=== PATIENT | female | born 1960 | race Caucasian/White ===

== ENCOUNTER 2022-01-05 08:05 | Outpatient (CLI) | payer BC, SELFPAY ==
[2022-01-05 10:16] LABS: Albumin* 4.7 g/dL (3.3-5.0); Chloride* 101 mmol/L (96-114)
[2022-01-05 10:17] LABS: Potassium* 4.3 mmol/L (3.6-5.1); Sodium* 139 mmol/L (135-149)
[2022-01-05 10:19] LABS: Aspartate Amino Transferase* 23 U/L (12-35); Bilirubin Total* 0.4 mg/dL (0.1-1.5); Blood Urea Nitrogen* 23 mg/dL (7-30); Carbon Dioxide* 28 mmol/L (20-32); Cholesterol* 194 mg/dL (90-199); Estimated Glomerular Filt Rate 64 ml/min; Total Protein* 7.6 g/dL (6.0-8.3)
[2022-01-05 10:20] LABS: Alanine Aminotransferase* 25 U/L (4-35); Alkaline Phosphatase* 101 U/L (40-150); Calcium* 9.7 mg/dL (8.4-10.6); Glucose* 110 mg/dL (60-115); HDL Cholesterol* 51 mg/dL (>=50); LDL Cholesterol Calculated 119 mg/dL (<100); Triglycerides* 122 mg/dL (40-149)
== END 2022-01-05 08:06 | disposition home or self-care (01) ==
PROVIDERS: PCP Family Medicine; Visit Provider Family Medicine
DX: E78.5 Hyperlipidemia, unspecified (principal)
CPT/HCPCS: 80053; 80061

== ENCOUNTER 2022-01-20 08:43 | Outpatient (CLI) | payer BC, SELFPAY | END 2022-01-20 08:44 | disposition home or self-care (01) | PROVIDERS: PCP Family Medicine; Visit Provider Surgery | DX: Z12.11 Encounter for screening for malignant neoplasm of colon (principal) | CPT/HCPCS: 45378; 99153; J2250; J3010 ==

== ENCOUNTER 2022-01-24 11:05 | Emergency (ER) | payer BC, SELFPAY ==
[2022-01-24] VITALS (16 sets, daily range): BP systolic 116–145; BP diastolic 65–88; PULSE 59–69; TEMP 36.8; O2SAT 98–100; BMI 28.3
--- NOTE | 2022-01-24 11:17 | ED_ITS ---
HPI - General Adult General Time Seen by Provider: 11:17 Date Seen: 01/24/22 Chief complaint: Abdominal Pain Stated complaint: Nausea abnormal bowel movement Time Seen by Provider: 01/24/22 11:07 Source: patient and RN notes reviewed Mode of arrival: ambulatory Limitations: no limitations History of Present Illness HPI narrative: Patient is a 61-year-old female coming in with severe nausea starting today as well as change in stool color. Patient had a colonoscopy this past Wednesday, states there were no biopsies done, no polyps found. She has had no bloody stoo ls, no significant abdominal pain after the colonoscopy. Yesterday she did receive her 5th COVID vaccine as well as her influenza vaccine. Besides her arm feeling sore, she had had no other symptoms. Today she awoke feeling nauseated. She did have some coffee and toast this morning and feels that made her worse. She has not vomited in but does carry a bucket with her coming in. There has been no fevers or chills. No urinary symptoms. She had a bowel movement that was formed but had white stool mixed in, looked like whipped cream color to her. She has never had any abdominal surgeries, still does have her gallbladder. Is not having any abdominal pain, just feeling quite nauseated. Colonoscopy was performed here. Related Data Previous Rx's Medication Instructions Recorded atorvastatin 10 mg tablet 10 mg PO QDAY #90 tabs 01/05/22 fluoxetine 20 mg capsule 20 mg PO QDAY #90 caps 01/05/22 peg 3350-electrolytes 236 240 ml PO Q10M #4,000 mL 01/05/22 gram-22.74 gram-6.74 gram-5.86 gram solution (Golytely) fluoxetine 10 mg capsule 30 mg PO QDAY #90 caps 01/18/22 Allergies Allergy/AdvReac Type Severity Reaction Status Date / Time iodine Allergy Mild Hives Verified 01/24/22 11:40 Review of Systems Status of ROS: Reports: 10 or more systems reviewed and unremarkable except as noted in History and below [facility] Medical History (Updated 01/24/22 @ 13:19 by Joselin Mcguire MD) Bladder cancer Social History Smoking Status: Never smoker Do you use any of these nicotine containing products: None Second hand tobacco smoke exposure: No How often do you have a drink containing alcohol: never How often do you have six or more drinks on one occasion: Never AUDIT-C Alcohol total score: 0 Non-prescribed substance use: denies use Little interest or pleasure in doing things: more than half the days Feeling down, depressed, or hopeless: more than half the days Exam Const: Vital Signs, click to edit/add: Vital Signs - 24 hr 01/24/22 11:12 01/24/22 11:20 01/24/22 11:22 Temperature 98.2 F Pulse Rate 65 66 Pulse Rate [Left P ulse Oximeter] 69 Blood Pressure 142/88 H Blood Pressure [Ri ght Upper Arm] 133/75 Pulse Oximetry 99 100 100 Oxygen Delivery Me thod Room Air 01/24/22 11:32 01/24/22 11:23 01/24/22 11:30 Temperature Pulse Rate 65 69 Pulse Rate [Left P ulse Oximeter] Blood Pressure Blood Pressure [Ri ght Upper Arm] Pulse Oximetry 99 100 100 Oxygen Delivery Me thod 01/24/22 11:32 01/24/22 12:08 01/24/22 12:10 Temperature Pulse Rate 64 60 59 L Pulse Rate [Left P ulse Oximeter] Blood Pressure 140/82 H 116/65 Blood Pressure [Ri ght Upper Arm] Pulse Oximetry 100 100 100 Oxygen Delivery Me thod 01/24/22 12:11 01/24/22 12:50 01/24/22 12:52 Temperature Pulse Rate 64 67 Pulse Rate [Left P ulse Oximeter] Blood Pressure 145/85 H Blood Pressure [Ri ght Upper Arm] Pulse Oximetry 100 98 100 Oxygen Delivery Me thod Documenting provider has reviewed patient's vital signs: yes Common normals: no apparent distress, average body habitus, oriented x3, no limitations, healthy appearing and alert General appearance: cooperative, comfortable and well kempt HENMT: Common normals: normocephalic, head/scalp atraumatic, hearing grossly normal bilaterally, external ears normal, external nose normal, nasal mucous membranes and turbinates normal, moist oral mucous membranes, oropharynx normal, dentition normal and gingiva normal Head and scalp: normocephalic and atraumatic Nose: external nose normal and nasal mucous membranes and turbinates normal External ear: external ears normal Eye: Common normals: PERRL, EOMs intact bilaterally, conjunctivae normal and no scleral icterus Conjunctiva: conjunctiva(e) normal Pupil: PERRL Neck & C-Spine: Common normals: full ROM, no lymphadenopathy, supple, no meningeal signs, no JVD and thyroid normal Thyroid: thyroid normal Resp: Common normals: normal respiratory effort, no retractions, no use of accessory muscles and clear to auscultation bilaterally Effort & inspection: able to speak in complete sentences Auscultation: clear to auscultation bilaterally Cardio: Common normals: no JVD, regular rate, regular rhythm, S1 normal heart sound, S2 normal heart sound, no gallops, no clicks, no murmurs and no rub Rate: regular rate Rhythm: regular rhythm Heart sounds: S1 normal and S2 normal GI: Common normals: Normal to inspection, nondistended, normoactive bowel sounds present, soft to palpation, non-tender, no hepatosplenomegaly, no masses and no bruits Palpation: soft and no hepatosplenomegaly Extremity: Common normals: normal to inspection, full ROM, normal capillary refill, no joint enlargement, no clubbing, cyanosis or edema, no calf tenderness and no pedal edema Neuro: Common normals: oriented x3, CN's II-XII intact bilaterally, moves all extremities, no focal motor deficits, no sensory deficits noted and gait normal Sensorium/orientation: alert Meningeal signs: no meningeal signs Psych: Appearance: well kempt Course Course Hospital Course: Patient's history is a bit complicated with a recent colonoscopy and getting immunized for COVID as well as influenza yesterday. With the change in stool color, reviewed with her and her that that could be suggestive of gallbladder disease. She has had no diarrhea but is having formed stools with 1 today with whitish color. With the nausea, I do think we need to consider gallbladder disease. I am doubtful that this is a perforation or complication of her colonoscopy but will simply do a flat and upright to ensure no acute pathology there. We will attempt to treat her nausea with a L of IV fluids and as well as 4 mg IV Zofran. We will get appropriate labs. Will look at her gallbladder with a limited ultrasound. Reevaluation(s) Reevaluation #1: Patient is feeling much better, the Zofran has worked wonderfully. Reviewed her normal labs with her, including lipase and C reactive protein. Did review with her that we even checked a troponin which was normal. Her abdominal x-ray is showing potential stool buildup despite recent colonoscopy. There are no obstructive changes, no perforation. Her gallbladder ultrasound is not suggestive of any acute pathology, there is some sludge but nothing obstructive in certainly no changes of cholecystitis. Did review with her that there might be a pancreatic cyst and given normal labs, nonacute abdomen today, do feel that outpatient further workup with a dedicated pancreatic CT or MRI as noted by radiology would be appropriate. Time: 13:16 Vital Signs Vital signs: Initial Vital Signs Temperature 98.2 F 01/24/22 11:12 Temperature Source Temporal Artery Scan 01/24/22 11:12 Pulse Rate 69 01/24/22 11:12 Blood Pressure 133/75 01/24/22 11:12 Blood Pressure Mean 94 01/24/22 11:12 Blood Pressure Position Supine 01/24/22 11:12 Pulse Oximetry 99 01/24/22 11:12 Oxygen Delivery Method 01/24/22 11:12 Vital Signs Temperature 98.2 F 01/24/22 11:12 Pulse Rate 69 01/24/22 11:12 Blood Pressure 133/75 01/24/22 11:12 Pulse Oximetry 99 01/24/22 11:12 Oxygen Delivery Method 01/24/22 11:12 Temperature 98.2 F 01/24/22 11:12 Pulse Rate 67 01/24/22 12:52 Blood Pressure 145/85 H 01/24/22 12:52 Pulse Oximetry 100 01/24/22 12:52 Oxygen Delivery Method 01/24/22 11:12 Medical Decision Making Lab Data Lab results reviewed: Yes I reviewed the patient's lab results Labs: Lab Results 01/24/22 01/24/22 01/24/22 Range/Units 11:33 11:55 11:55 WBC 6.67 (4.50-11.00) K/uL RBC 4.40 (4.00-5.20) m/uL Hgb 13.1 (12.0-16.0) gm/dL Hct 39.9 (33.0-51.0) % MCV 91 (80-100) fL MCH 30 (26-34) pg MCHC 33 (32-36) gm/dL RDW Coeff of Amanda 12.9 (11.5-15.5) % Plt Count 254 (140-440) K/uL Neut % (Auto) 76.7 H (42.0-72.0) % Lymph % (Auto) 16.5 L (20-44) % [place] % (Auto) 3.9 (0.0-11.0) % Eos % (Auto) 2.5 (0.0-7.0) % Baso % (Auto) 0.4 (0.0-3.0) % Neut # (Auto) 5.10 (1.7-7.0) K/uL Lymph # (Auto) 1.10 (0.90-2.90) K/uL [place] # (Auto) 0.30 (0.00-0.90) K/UL Eos # (Auto) 0.17 (0.00-0.50) K/uL Baso # (Auto) 0.03 (0.00-0.30) K/uL Abs Immat Gran (auto) 0.00 (0.00-0.30) K/uL Sodium 138 (135-149) mmol/L Potassium 4.1 (3.6-5.1) mmol/L Chloride 101 (96-114) mmol/L Carbon Dioxide 27 (20-32) mmol/L BUN 20 (7-30) mg/dL Creatinine 1.0 (0.5-1.5) mg/dL Estimated Creat Clear 53.83 Estimated GFR 64 ml/min Glucose 107 (60-115) mg/dL Lactate (0.5-1.9) mmol/L Calcium 9.4 (8.4-10.6) mg/dL Total Bilirubin 0.5 (0.1-1.5) mg/dL AST 26 (12-35) U/L ALT 27 (4-35) U/L Alkaline Phosphatase 99 (40-150) U/L C-Reactive Protein 0.9 (0.5-1.0) mg/dL Total Protein 8.0 (6.0-8.3) g/dL Albumin 4.8 (3.3-5.0) g/dL Lipase 147 (23-300) U/L POC Troponin I 0.01 (0.01-0.04) ng/ml 01/24/22 Range/Units 11:55 WBC (4.50-11.00) K/uL RBC (4.00-5.20) m/uL Hgb (12.0-16.0) gm/dL Hct (33.0-51.0) % MCV (80-100) fL MCH (26-34) pg MCHC (32-36) gm/dL RDW Coeff of Amanda (11.5-15.5) % Plt Count (140-440) K/uL Neut % (Auto) (42.0-72.0) % Lymph % (Auto) (20-44) % [place] % (Auto) (0.0-11.0) % Eos % (Auto) (0.0-7.0) % Baso % (Auto) (0.0-3.0) % Neut # (Auto) (1.7-7.0) K/uL Lymph # (Auto) (0.90-2.90) K/uL [place] # (Auto) (0.00-0.90) K/UL Eos # (Auto) (0.00-0.50) K/uL Baso # (Auto) (0.00-0.30) K/uL Abs Immat Gran (auto) (0.00-0.30) K/uL Sodium (135-149) mmol/L Potassium (3.6-5.1) mmol/L Chloride (96-114) mmol/L Carbon Dioxide (20-32) mmol/L BUN (7-30) mg/dL Creatinine (0.5-1.5) mg/dL Estimated Creat Clear Estimated GFR ml/min Glucose (60-115) mg/dL Lactate 1.1 (0.5-1.9) mmol/L Calcium (8.4-10.6) mg/dL Total Bilirubin (0.1-1.5) mg/dL AST (12-35) U/L ALT (4-35) U/L Alkaline Phosphatase (40-150) U/L C-Reactive Protein (0.5-1.0) mg/dL Total Protein (6.0-8.3) g/dL Albumin (3.3-5.0) g/dL Lipase (23-300) U/L POC Troponin I (0.01-0.04) ng/ml Imaging Data Abdominal x-ray: Attestation: I have reviewed the pertinent imaging results. My impression: My preliminary review of her x-ray shows significant stool within the colon but I do not appreciate obstructive pattern, certainly no free air noted. Will await Radiology over-read. Radiologist's impression: Patient: JASON LOPEZ Facility:?[facility] Patient ID:?[id number] Site Patient ID:?[id number]. Site :?[id number] Study:?XRay Abdomen 2 VIEW-01/24/2022 11:48:41 AM Ordering Physician:?Shayla Olivera Final Report: HISTORY: Nausea. Recent colonoscopy. TECHNIQUE: Flat and upright abdominal radiographs. COMPARISON: No prior. FINDINGS: No free intraperitoneal air. No bowel obstruction. There is a moderate amount of stool within the colon. Lung bases clear. IMPRESSION: 1. No free air or bowel obstruction. 2. Moderate stool within the colon. Dictated by Nawaf Nolen MD @ 01/24/2022 11:55:04 AM Dictated by: Nawaf Nolen MD @ 01/24/2022 11:55:08 (Electronic Signature) US - abdomen: Attestation: I have reviewed the pertinent imaging results. Radiologist's impression: Patient: JASON LOPEZ Facility:?[facility] Patient ID:?[id number] Site Patient ID:?[id number]. Site :?[id number] Study:?US Abdomen/Pelvis -01/24/2022 12:38:44 PM Ordering Physician:?Shayla Olivera Final Report: INDICATION: Nausea. TECHNIQUE: Ultrasound abdomen limited. Sonographic images of the right upper quadrant were obtained using mcdonald-scale and color Doppler images. COMPARISON: None. FINDINGS: Liver: Normal in size and echotexture. No suspicious masses. No intrahepatic biliary dilatation. Gallbladder: Biliary sludge. Normal wall thickness. No pericholecystic fluid. Common bile duct: 5 mm. Pancreas: Possible tiny incidental hypoechoic lesion in the pancreatic body. Right kidney: Normal in size. Normal echotexture and cortex. No suspicious masses, stones, or hydronephrosis. Vasculature: Proximal abdominal aorta and IVC are unremarkable. IMPRESSION: Biliary sludge without acute cholecystitis, or biliary obstruction. Possible tiny incidental hypoechoic lesion pancreatic body, without ductal dilation, which could represent possible cyst. Recommend outpatient pancreatic protocol CT or MRI. Dictated by Domenic Pepper MD @ 01/24/2022 12:55:38 PM (Electronic Signature) Critical Care Time Critical Care Time Critical Care Time: No Discharge Plan Discharge Clinical Impression: Nausea alone Patient Disposition: Home, Self-Care Condition: Stable Instructions: Acute Nausea and Vomiting (ED) Additional Instructions: Can use Zofran per prescription instructions to help keep nausea baby. I would recommend clear liquids, try going on some MiraLax to ensure that your bowels are working appropriately. If you are tolerating clears without nausea can increase diet back to regular as tolerated. You do need to schedule a followup in bringing the ultrasound report to that visit. You should have a dedicated pancreatic CT or MRI as requested by Radiology for further identification and evaluation of a possible pancreatic cyst or lesion seen on the ultrasound. In the meantime, should you develop vomiting, abdominal pain, fever associated with either of these, do need to return to the ER for further evaluation. Activity Level: Activity as Tolerated Prescriptions: No Action fluoxetine 20 mg capsule 20 mg PO QDAY Qty: 90 3RF atorvastatin 10 mg tablet 10 mg PO QDAY Qty: 90 3RF peg 3350-electrolytes [Golytely] 236-22.74-6.74 -5.86 gram recon soln 240 ml PO Q10M Qty: 4000 0RF Rx Instructions: until fecal effluent is clear fluoxetine 10 mg capsule 30 mg PO QDAY Qty: 90 1RF Follow Up/Referrals: Abelardo Manzanares MD [Primary Care Provider] - Stand Alone Forms: [employer] Info Instructions
--- NOTE | 2022-01-24 11:32 | CRLHL7_ITS ---
For Patients: As a result of the Century Cures Act, medical imaging exams and procedure reports are released immediately into your electronic medical record. You may view this report before your referring provider. If you have questions, please contact your health care provider. INDICATION: Nausea. TECHNIQUE: Ultrasound abdomen limited. Sonographic images of the right upper quadrant were obtained using mcdonald-scale and color Doppler images. COMPARISON: None. FINDINGS: Liver: Normal in size and echotexture. No suspicious masses. No intrahepatic biliary dilatation. Gallbladder: Biliary sludge. Normal wall thickness. No pericholecystic fluid. Common bile duct: 5 mm. Pancreas: Possible tiny incidental hypoechoic lesion in the pancreatic body. Right kidney: Normal in size. Normal echotexture and cortex. No suspicious masses, stones, or hydronephrosis. Vasculature: Proximal abdominal aorta and IVC are unremarkable. IMPRESSION: Biliary sludge without acute cholecystitis, or biliary obstruction. Possible tiny incidental hypoechoic lesion pancreatic body, without ductal dilation, which could represent possible cyst. Recommend outpatient pancreatic protocol CT or MRI. Dictated by Domenic Pepper MD @ 01/24/2022 12:55:38 PM (Electronically Signed)
--- NOTE | 2022-01-24 11:32 | CRLHL7_ITS ---
For Patients: As a result of the Century Cures Act, medical imaging exams and procedure reports are released immediately into your electronic medical record. You may view this report before your referring provider. If you have questions, please contact your health care provider. HISTORY: Nausea. Recent colonoscopy. TECHNIQUE: Flat and upright abdominal radiographs. COMPARISON: No prior. FINDINGS: No free intraperitoneal air. No bowel obstruction. There is a moderate amount of stool within the colon. Lung bases clear. IMPRESSION: 1. No free air or bowel obstruction. 2. Moderate stool within the colon. Dictated by Nawaf Nolen MD @ 01/24/2022 11:55:04 AM Dictated by: Nawaf Nolen MD @ 01/24/2022 11:55:08 (Electronically Signed)
[2022-01-24] MEDS: 0.9 % SODIUM CHLORIDE 1000 ml 1,000 ML 500 ML IV (12:02)
[2022-01-24 12:03] LABS: Lactate* 1.1 mmol/L (0.5-1.9)
[2022-01-24] MEDS: ONDANSETRON 2 MG/ML inj 4 MG IVP (12:03)
[2022-01-24 12:05] LABS: Basophils Absolute Auto 0.03 K/uL (0.00-0.30); Basophils Percent Auto 0.4 % (0.0-3.0); Eosinophils Absolute Auto 0.17 K/uL (0.00-0.50); Eosinophils Percent Auto 2.5 % (0.0-7.0); Hematocrit 39.9 % (33.0-51.0); Hemoglobin* 13.1 gm/dL (12.0-16.0); Lymphocytes Percent Auto 16.5 % (20-44); Mean Corpuscular HGB Conc 33 gm/dL (32-36); Mean Corpuscular Hemoglobin 30 pg (26-34); Mean Corpuscular Volume 91 fL (80-100); Monocytes Percent Auto 3.9 % (0.0-11.0); Neutrophils Percent Auto 76.7 % (42.0-72.0); Platelet Count* 254 K/uL (140-440); RDW Coefficient of Variation % 12.9 % (11.5-15.5); White Blood Count* 6.67 K/uL (4.50-11.00)
[2022-01-24 12:12] LABS: Slide Review Reflex No
[2022-01-24 12:17] LABS: Troponin, Point-of-Care* 0.01 ng/ml (0.01-0.04)
[2022-01-24 12:26] LABS: Chloride* 101 mmol/L (96-114)
[2022-01-24 12:27] LABS: Albumin* 4.8 g/dL (3.3-5.0); Potassium* 4.1 mmol/L (3.6-5.1); Sodium* 138 mmol/L (135-149)
[2022-01-24 12:29] LABS: Est. Creatinine Clearance* 53.83; Estimated Glomerular Filt Rate 64 ml/min
[2022-01-24 12:30] LABS: Alanine Aminotransferase* 27 U/L (4-35); Alkaline Phosphatase* 99 U/L (40-150); Aspartate Amino Transferase* 26 U/L (12-35); Bilirubin Total* 0.5 mg/dL (0.1-1.5); Blood Urea Nitrogen* 20 mg/dL (7-30); Calcium* 9.4 mg/dL (8.4-10.6); Carbon Dioxide* 27 mmol/L (20-32); Glucose* 107 mg/dL (60-115); Lipase* 147 U/L (23-300)
[2022-01-24 12:33] LABS: C Reactive Protein* 0.9 mg/dL (0.5-1.0)
== END 2022-01-24 13:38 | disposition home or self-care (01) ==
PROVIDERS: Emergency Provider Family Medicine; PCP Family Medicine
DX: R11.0 Nausea (principal)
CPT/HCPCS: 36415; 74019; 76705; 80053; 83605; 83690; 84484; 85025; 86140; 94761; 96374; 99284; 99285; J2405; J7030

== ENCOUNTER 2022-06-18 08:15 | Outpatient (CLI) | payer BC, SELFPAY | END 2022-06-18 08:16 | disposition home or self-care (01) | LOC: NFLDREF 06-25 12:39 | PROVIDERS: PCP Family Medicine; Referring Provider Family Medicine; Visit Provider Family Medicine | DX: E78.5 Hyperlipidemia, unspecified (principal) | CPT/HCPCS: 80061 ==

== ENCOUNTER 2022-07-09 07:13 | Outpatient (CLI) | payer BC, SELFPAY ==
--- NOTE | 2022-07-09 07:15 | CRLHL7_ITS ---
For Patients: As a result of the Cures Act, medical imaging exams and procedure reports are released immediately into your electronic medical record. You may view this report before your referring provider. If you have questions, please contact your health care provider. INDICATION: Hypoechoic lesion in the body of the pancreas on ultrasound study ; Further assessment. COMPARISON: Ultrasound examination of the right upper quadrant of the abdomen January 24, 2022. TECHNIQUE: Precontrast T1 and T2 weighted imaging; T2 haste imaging; diffusion weighted imaging; in and out of phase imaging; postcontrast imaging including subtraction. FINDINGS: No pathology identified within the pancreas. No abnormalities identified in the body of the pancreas corresponding to the small hypo echoic lesion seen on the ultrasound. No pancreatic ductal dilatation. No peripancreatic inflammatory changes. An 8 mm simple cyst segment 7 of the liver. No other focal hepatic pathology. No splenic pathology. Gallbladder is unremarkable. No evidence of biliary duct dilatation. No adrenal pathology. Kidneys are unremarkable. Impression: 1. NO lesions identified within the pancreas; suggest obtaining a followup ultrasound examination of the pancreas to see if the previous lesion is still present. 2. An 8 mm cyst segment 7 of the liver. Dictated by Christie Read MD @ 07/13/2022 9:16:22 AM (Electronically Signed)
== END 2022-07-09 07:14 | disposition home or self-care (01) ==
PROVIDERS: PCP Family Medicine; Visit Provider Family Medicine
DX: K86.2 Cyst of pancreas (principal); K76.89 Other specified diseases of liver
CPT/HCPCS: 74183; A9575

== ENCOUNTER 2023-03-09 08:30 | Outpatient (CLI) | payer BC, SELFPAY | END 2023-03-09 08:31 | disposition home or self-care (01) | LOC: NFLDREF 03-11 15:03 | PROVIDERS: PCP Family Medicine; Referring Provider Family Medicine; Visit Provider Family Medicine | DX: E78.5 Hyperlipidemia, unspecified (principal) | CPT/HCPCS: 80053; 80061 ==

== ENCOUNTER 2024-05-11 08:30 | Outpatient (CLI) | payer BC, SELFPAY | END 2024-05-11 08:31 | disposition home or self-care (01) | LOC: NFLDREF 05-21 01:57 | PROVIDERS: PCP Family Medicine; Referring Provider Family Medicine; Visit Provider Family Medicine | DX: E78.5 Hyperlipidemia, unspecified (principal); I10 Essential (primary) hypertension; R73.01 Impaired fasting glucose | CPT/HCPCS: 80053; 80061 ==

== ENCOUNTER 2024-06-06 08:44 | Outpatient (CLI) | payer BC, SELFPAY | END 2024-06-06 08:45 | disposition home or self-care (01) | LOC: MAMMO 08:44 | PROVIDERS: PCP Family Medicine; Visit Provider Family Medicine | DX: Z12.31 Encounter for screening mammogram for malignant neoplasm of breast (principal); R92.333 Mammographic heterogeneous density, bilateral breasts | CPT/HCPCS: 77063; 77067 ==

== ENCOUNTER 2025-04-08 10:39 | Outpatient (CLI) | payer BC, SELFPAY | END 2025-04-08 10:40 | disposition home or self-care (01) | LOC: NFLDREF 04-13 07:40 | PROVIDERS: PCP Family Medicine; Referring Provider Family Medicine; Visit Provider Nurse Practitioner Family | DX: N30.90 Cystitis, unspecified without hematuria (principal) | CPT/HCPCS: 87086 ==